=== PATIENT | female | born 1985 | race Hispanic/Latino ===

== ENCOUNTER 2017-10-24 14:44 | Emergency (ER) | payer MEDICAID, OTHER ==
[2017-10-24] MEDS ORDERED: cefTRIAXone (Rocephin) 250 mg Inj IM ONE (15:39)
--- NOTE | 2017-10-24 15:42 | ED PDOC ---
HPI: Abdomen Time Seen by Provider: 10/24/17 15:20 Chief Complaint (Nursing): Abdominal Pain Chief Complaint (Provider): "i have pressure" History Per: Patient History/Exam Limitations: no limitations Onset/Duration Of Symptoms: Days Outside of [place] travel?: No Current Symptoms Are (Timing): Still Present Severity: Mild Pain Scale Rating Of: 2 Location Of Pain/Discomfort: Other (para-vaginally ) Quality Of Discomfort: Dull, Pressure Exacerbating Factors: None Alleviating Factors: None Last Bowel Movement: Today Additional Complaint(s): 32 y/o female, hx of anxiety/depression presents complaining of vaginal pressure and discomfort. Pt reports she was having her usual menstrual period this week and thought she may have forgotten to remove a tampon prior to putting another one in. She has para-vaginal pressure like pain, 2/10, nonradiating, that has been fairly constant since the day before. She is only sexually active with her boyfriend. No other active complaints. Denies fever/ chills, headaches, changes in vision, CP/SOB/palpitations, N/V/D/C, urinary symptoms. Past Medical History Reviewed: Vital Signs Vital Signs: Last Vital Signs Temp 98.1 F 10/24/17 16:02 Pulse 86 10/24/17 16:02 Resp 18 10/24/17 16:02 BP 141/79 10/24/17 16:02 Pulse Ox 100 10/24/17 16:02 - Medical History PMH: Anxiety, Depression - Surgical History Surgical History: No Surg Hx - Family History Family History: States: No Known Family Hx - Allergies Allergies/Adverse Reactions: Allergies Allergy/AdvReac Type Severity Reaction Status Date / Time No Known Allergies Allergy Verified 10/24/17 14:52 Review of Systems ROS Statement: Except As Marked, All Systems Reviewed And Found Negative Physical Exam - Reviewed Nursing Documentation Reviewed: Yes Vital Signs Reviewed: Yes - Physical Exam Appears: Positive for: Non-toxic, No Acute Distress, Uncomfortable Head Exam: Positive for: ATRAUMATIC Skin: Positive for: Normal Color, Warm, Dry Eye Exam: Positive for: EOMI, PERRL. Negative for: Conjunctival injection Neck: Positive for: Normal, Painless ROM, Supple Cardiovascular/Chest: Positive for: Regular Rate, Rhythm Respiratory: Positive for: Normal Breath Sounds Pulses-Radial (L): 2+ Pulses-Radial (R): 2+ Gastrointestinal/Abdominal: Positive for: Normal Exam, Soft. Negative for: Tenderness, Organomegaly, Distended, Guarding, Rebound Pelvic Exam: Positive for: External Exam Normal, Speculum Exam Normal (no sign of foreign body, discharge appreciated ), Bimanual Exam Normal, No Cerv. Motion Tender, No Masses, Discharge (copious greenish/yellow discharge ). Negative for : Active Bleeding, Blood, Cervicitis, Lesions, Tender W/Cervical Motion, Tender Adnexa, Tender Uterus, Ulcers Back: Negative for: L CVA Tenderness, R CVA Tenderness Extremity: Positive for: Normal ROM Lymphatic: Negative for: Adenopathy Neurologic/Psych: Positive for: Alert, director of exhibit development II-XII, Oriented. Negative for: Motor/Sensory Deficits - ECG O2 Sat by Pulse Oximetry: 99 - Progress ED Course And Treament: suspected foreign body/infection pelvic exam performed with Dr. Marquez present, no foreign body seen only greenish/yellow discharge GC/CHL cultures s/p Azithromycin 1g PO Rocephin 250mg IM Disposition - Clinical Impression Clinical Impression: Cervicitis - Patient ED Disposition Is Patient to be Admitted: No - Disposition Referrals: [facility] [Outside] Disposition: Routine/Home Disposition Time: 16:23 Condition: STABLE Instructions: Cervicitis (ED) Forms: [employer] (Hebrew)
[2017-10-24] MEDS ORDERED: cefTRIAXone (Rocephin) 250 mg Inj ONE (15:52)
[2017-10-24 16:02] VITALS: BP 141/79; PULSE 86; RESP 18; TEMP 98.1
[2017-10-24 16:23] VITALS: O2SAT 99
== END 2017-10-24 16:35 | disposition home or self-care (01) ==
LOC: MERGE 14:44 → H.ER 14:44
DX: N72 Inflammatory disease of cervix uteri (principal); F32.9 Major depressive disorder, single episode, unspecified; F41.9 Anxiety disorder, unspecified
CPT/HCPCS: 87070; 87181; 87491; 87591; 96372; 99282; J0696

== ENCOUNTER 2018-12-18 21:23 | Emergency (ER) | payer SELFPAY ==
[2018-12-18 21:23] VITALS: BMI 20.9
[2018-12-18 22:46] LABS: SQUAMOUS EPITHIAL < 1 /hpf (0-5); URINE BILIRUBIN NEGATIVE (NEGATIVE); URINE BLOOD NEGATIVE (NEGATIVE); URINE CLARITY CLEAR (Clear); URINE COLOR STRAW (YELLOW); URINE GLUCOSE (UA) NEG (NEGATIVE); URINE LEUKOCYTE ESTERASE NEG Leu/uL (Negative); URINE PROTEIN NEGATIVE (NEGATIVE); URINE UROBILINOGEN 0.2-1.0 mg/dL (0.2-1.0)
[2018-12-18 23:06] LABS: BARBITURATES, UR NEGATIVE (NEGATIVE); BENZODIAZEPINES, UR NEGATIVE (NEGATIVE); OPIATES, UR NEGATIVE (NEGATIVE); PHENCYCLIDINE, UR NEGATIVE (NEGATIVE)
[2018-12-18 23:10] LABS: ALB/GLOB RATIO 1.4 (1.0-2.1); ALBUMIN 4.5 g/dL (3.5-5.0); ALT/SGPT 42 U/L (9-52); AST/SGOT 44 U/L (14-36); BLOOD UREA NITROGEN 10 mg/dl (7-17); CALCIUM 9.2 mg/dL (8.4-10.2); GFR NON-AFRICAN AMERICAN > 60
[2018-12-18 23:13] LABS: BASO # 0.1 K/uL (0.0-0.2); BASO % 1.9 % (0.0-2.0); EOS # 0.1 K/uL (0.0-0.7); EOS % 2.5 % (0.0-4.0); HEMOGLOBIN 14.2 g/dL (12.0-16.0); LYMPH # 1.7 K/uL (1.0-4.3); LYMPH % 43.4 % (20.0-40.0); MEAN CELL VOLUME 94.9 fl (81.0-99.0); MEAN CORPUSCULAR HEMOGLOBIN 32.2 pg (27.0-31.0); MEAN CORPUSCULAR HGB CONC 33.9 g/dL (33.0-37.0); MONO # 0.5 K/uL (0.0-0.8); MONO % 12.7 % (0.0-10.0); NEUT # 1.6 K/uL (1.8-7.0); NEUT % 39.5 % (50.0-75.0); NRBC % 0.2 % (0.0-0.0); RBC 4.42 Mil/uL (3.80-5.20); RED CELL DISTRIBUTION WIDTH 12.9 % (11.5-14.5)
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
--- NOTE | 2018-12-18 23:56 | ED PDOC ---
- Laboratory Results Result Diagrams: 12/18/18 22:45 12/18/18 22:45 Lab Results: Total Bilirubin 0.2 mg/dl (0.2-1.3) 12/18/18 22:45 AST 44 U/L (14-36) H 12/18/18 22:45 ALT 42 U/L (9-52) 12/18/18 22:45 Alkaline Phosphatase 66 U/L (38-126) 12/18/18 22:45 Total Protein 7.7 G/DL (6.3-8.2) 12/18/18 22:45 Albumin 4.5 g/dL (3.5-5.0) 12/18/18 22:45 Globulin 3.2 gm/dL (2.2-3.9) 12/18/18:45 Albumin/Globulin Ratio 1.4 (1.0-2.1) 12/18/18 22:45 Urine Color Straw (YELLOW) 12/18/18 22:35 Urine Clarity Clear (Clear) 12/18/18 22:35 Urine pH 6.0 (5.0-8.0) 12/18/18 22:35 Ur Specific [place] 1.005 (1.003-1.030) 12/18/18 22:35 Urine Protein Negative mg/dL (NEGATIVE) 12/18/18 22:35 Urine Glucose (UA) Neg mg/dL (NEGATIVE) 12/18/18 22:35 Urine Ketones Negative mg/dL (NEGATIVE) 12/18/18 22:35 Urine Blood Negative (NEGATIVE) 12/18/18 22:35 Urine Nitrate Negative (NEGATIVE) 12/18/18 22:35 Urine Bilirubin Negative (NEGATIVE) 12/18/18 22:35 Urine Urobilinogen 0.2-1.0 mg/dL (0.2-1.0) 12/18/18 22:35 Ur Leukocyte Esterase Neg Maura/uL (Negative) 12/18/18 22:35 Urine RBC (Auto) 1 /hpf (0-3) 12/18/18 22:35 Urine Microscopic WBC < 1 /hpf (0-5) 12/18/18 22:35 Ur Squamous Epith Cells < 1 /hpf (0-5) 12/18/18 22:35 - ECG O2 Sat by Pulse Oximetry: 97 <Bhavna Draper - Last Filed: 12/19/18 06:14> - Laboratory Results Result Diagrams: 12/18/18 22:45 12/18/18 22:45 Lab Results: Total Bilirubin 0.2 mg/dl (0.2-1.3) 12/18/18 22:45 AST 44 U/L (14-36) H 12/18/18 22:45 ALT 42 U/L (9-52) 12/18/18 22:45 Alkaline Phosphatase 66 U/L (38-126) 12/18/18 22:45 Total Protein 7.7 G/DL (6.3-8.2) 12/18/18 22:45 Albumin 4.5 g/dL (3.5-5.0) 12/18/18 22:45 Globulin 3.2 gm/dL (2.2-3.9) 12/18/18 22:45 Albumin/Globulin Ratio 1.4 (1.0-2.1) 12/18/18 22:45 Urine Color Straw (YELLOW) 12/18/18 22:35 Urine Clarity Clear (Clear) 12/18/18 22:35 Urine pH 6.0 (5.0-8.0) 12/18/18 22:35 Ur Specific [place] 1.005 (1.003-1.030) 12/18/18 22:35 Urine Protein Negative mg/dL (NEGATIVE) 12/18/18 22:35 Urine Glucose (UA) Neg mg/dL (NEGATIVE) 12/18/18 22:35 Urine Ketones Negative mg/dL (NEGATIVE) 12/18/18 22:35 Urine Blood Negative (NEGATIVE) 12/18/18 22:35 Urine Nitrate Negative (NEGATIVE) 12/18/18 22:35 Urine Bilirubin Negative (NEGATIVE) 12/18/18 22:35 Urine Urobilinogen 0.2-1.0 mg/dL (0.2-1.0) 12/18/18 22:35 Ur Leukocyte Esterase Neg Maura/uL (Negative) 12/18/18 22:35 Urine RBC (Auto) 1 /hpf (0-3) 12/18/18 22:35 Urine Microscopic WBC < 1 /hpf (0-5) 12/18/18 22:35 Ur Squamous Epith Cells < 1 /hpf (0-5) 12/18/18 22:35 <Josue Stallings - Last Filed: 12/19/18 06:45> Medical Decision Making Medical Decision Making: Patient endorsed to me by RACH Leung pending sobriety and crisis evaluation. 01:00am: patient seen, speaking coherently, A&Ox3, walking with steady gait. Crisis evaluation ordered. 06:00am: seen by crisis intervention specialist but will not be able to clear for discharge until at least 7am <Bhavna Draper - Last Filed: 12/19/18 06:14> Medical Decision Makin:00 Patient care endorsed to Dr. Marquez pending clinical sobriety and reevaluation. <Josue Stallings - Last Filed: 12/19/18 06:45> Disposition - POA Present On Arrival: None - Disposition Disposition: Transfer of Care (Dr. Stallings) Disposition Time: 06:15 <Bhavna Draper - Last Filed: 12/19/18 06:14> <Josue Stallings - Last Filed: 12/19/18 06:45> - Clinical Impression Clinical Impression: Depression, Alcohol abuse - Disposition Condition: STABLE Forms: [facility] (Comoran)
[2018-12-19 03:28] VITALS: RESP 18
[2018-12-19 07:00] VITALS: BP 128/82; PULSE 74; TEMP 98.2; O2SAT 98
--- NOTE | 2018-12-19 10:02 | RAD ---
Date of service: 12/19/2018 HISTORY: medical clearance COMPARISON: No prior. TECHNIQUE: Chest PA and lateral views FINDINGS: LUNGS: No active pulmonary disease. Incidental note made of an azygos fissure PLEURA: No significant pleural effusion identified. No pneumothorax apparent. CARDIOVASCULAR: No aortic atherosclerotic calcification present. Normal cardiac size. No pulmonary vascular congestion. OSSEOUS STRUCTURES: No significant abnormalities. VISUALIZED UPPER ABDOMEN: Normal. OTHER FINDINGS: None. IMPRESSION: No active disease.
--- NOTE | 2018-12-19 14:45 | CARD ---
APPROVED REPORT Date of service: 12/18/2018 EKG Measurement Heart [id number] <Conclusion> Normal sinus rhythm Normal ECG
== END 2018-12-19 07:14 | disposition home or self-care (01) ==
LOC: H.ER 21:23
DX: F10.10 Alcohol abuse, uncomplicated (principal); F32.9 Major depressive disorder, single episode, unspecified; F41.9 Anxiety disorder, unspecified
CPT/HCPCS: 71046; 80053; 81003; 81025; 85025; 93005; 99285; G0480

== ENCOUNTER 2019-01-29 18:54 | Emergency (ER) | payer SELFPAY ==
[2019-01-29 19:04] VITALS: BMI 20.1
--- NOTE | 2019-01-29 20:23 | ED PDOC ---
HPI: Psych/Substance Abuse Time Seen by Provider: 01/29/19 19:17 Chief Complaint (Nursing): Psychiatric Evaluation Chief Complaint (Provider): Crisis Evaluation History Per: Patient History/Exam Limitations: no limitations Onset/Duration Of Symptoms: Hrs Suicide/Self Injury Attempted (Context): None Additional Complaint(s): 34 year old female presents to ED for crisis evaluation. Patient reports noncompliance with psychiatric medicine and cites lapsed insurance for not covering medicine. Patient did not request to come to ED; however her boyfriend called because she had suicidal ideation. She does not have any suicidal ideation at this time but in the past she has had ideation. She additionally denies any auditory or visual hallucinations and homicidal ideation. PMD: [facility] Past Medical History Reviewed: Historical Data, Nursing Documentation, Vital Signs Vital Signs: Last Vital Signs Temp 97.8 F 01/29/19 19:00 Pulse 112 H 01/29/19 19:00 Resp 18 01/29/19 19:00 BP 133/91 H 01/29/19 19:00 Pulse Ox 97 01/29/19 19:00 Primary Care Provider: Non [facility] Provider, - Medical History PMH: Anxiety, Depression Denies: Diabetes, Hepatitis, HIV, HTN, Seizures, Sexually Transmitted Disease - Family History Family History: States: Unknown Family Hx - Social History Current smoker - smoking cessation education provided: No Alcohol: Social (occasionally) Drugs: Denies - Immunization History Hx Influenza Vaccination: Yes Hx Pneumococcal Vaccination: No - Allergies Allergies/Adverse Reactions: Allergies Allergy/AdvReac Type Severity Reaction Status Date / Time No Known Allergies Allergy Verified 12/18/18 21:30 Review of Systems ROS Statement: Except As Marked, All Systems Reviewed And Found Negative Psych: Positive for: Suicidal ideation (referred to hospital by her boyfriend) Physical Exam - Reviewed Nursing Documentation Reviewed: Yes Vital Signs Reviewed: Yes - Physical Exam Appears: Positive for: Non-toxic, No Acute Distress Head Exam: Positive for: ATRAUMATIC, NORMOCEPHALIC Skin: Positive for: Normal Color, Warm, Dry Eye Exam: Positive for: EOMI, Normal appearance, PERRL ENT: Positive for: Normal ENT Inspection Neck: Positive for: Normal, Painless ROM, Supple Cardiovascular/Chest: Positive for: Regular Rate, Rhythm. Negative for: Murmur Respiratory: Positive for: Normal Breath Sounds. Negative for: Respiratory Distress Gastrointestinal/Abdominal: Positive for: Normal Exam, Soft. Negative for: Tenderness Back: Positive for: Normal Inspection. Negative for: L CVA Tenderness, R CVA Tenderness, Vertebral Tenderness Extremity: Positive for: Normal ROM (upper and lower). Negative for: Pedal Edema, Deformity Neurological/Psych: Positive for: Alert, Oriented (x3). Negative for: Motor/Sensory Deficits - ECG O2 Sat by Pulse Oximetry: 97 (RA) Pulse Ox Interpretation: Normal Medical Decision Making Medical Decision Making: Time: 1919 Impression: 34 year old female referred for crisis evaluation and non compliance with psychiatric medicine Initial Plan: --Labs (Drug screen, U-preg, U-dip) --Crisis Evaluation consultation 2102 Patient evaluated by crisis and diagnosed with anxiety. She was discharged home in the company of her boyfriend. Scribe Attestation: Documented by Darrel Wallace training under Carmen Dela Cruz, acting as a scribe for Josue Stallings MD. Provider Scribe Attestation: All medical record entries made by the Scribe were at my direction and personally dictated by me. I have reviewed the chart and agree that the record accurately reflects my personal performance of the history, physical exam, medical decision making, and the department course for this patient. I have also personally directed, reviewed, and agree with the discharge instructions and disposition. Disposition - Clinical Impression Clinical Impression: Anxiety - Disposition Referrals: [facility] [Primary Care Provider] - Disposition Time: 21:03 (home) Condition: STABLE Instructions: Anxiety, Adult (DC) Forms: [employer] (Croatian)
[2019-01-29 20:39] LABS: BARBITURATES, UR NEGATIVE (NEGATIVE); BENZODIAZEPINES, UR NEGATIVE (NEGATIVE); OPIATES, UR NEGATIVE (NEGATIVE); PHENCYCLIDINE, UR NEGATIVE (NEGATIVE)
[2019-01-29 21:25] VITALS: BP 134/87; PULSE 97; RESP 15; TEMP 98; O2SAT 99
== END 2019-01-29 21:25 | disposition home or self-care (01) ==
LOC: H.ER 18:54 → SUPCPDRO 18:54 → H.ER 21:25
DX: F41.9 Anxiety disorder, unspecified (principal); Z86.59 Personal history of other mental and behavioral disorders
CPT/HCPCS: 81025; 99283; G0480

== ENCOUNTER 2019-02-18 16:22 | Emergency (ER) | payer MEDICAID ==
[2019-02-18 16:22] VITALS: BMI 20.1
[2019-02-18 17:17] VITALS: RESP 18; TEMP 98.6; O2SAT 100
--- NOTE | 2019-02-18 17:41 | ED PDOC ---
HPI: CCC, URI, Sore Throat Time Seen by Provider: 02/18/19 17:22 Chief Complaint (Nursing): ENT Problem Chief Complaint (Provider): Left Ear Pain History Per: Patient History/Exam Limitations: no limitations Onset/Duration Of Symptoms: Days (x 1 month) Current Symptoms Are (Timing): Still Present Additional Complaint(s): 34 year old female presents to the ED for evaluation of left ear pain beginning one month ago, worsening since onset associated with decreased hearing from the ear and increased pressure, unrelieved with peroxide use. She notes one similar episode when she was 18 y/o but attributes that to a beach vacation in [place]. Currently denies recent swimming, URI symptoms, and fever. Of note, patient says she has no PMD at the moment secondary to an insurance issue, and when she found out it was not being reinstated, she came in today for evaluation, additionally reporting she has been unable to take her psych meds since November due to this issue. Denies suicidal and homicidal ideation. Past Medical History Reviewed: Historical Data, Nursing Documentation, Vital Signs Vital Signs: Last Vital Signs Temp 98.6 F 02/18/19 17:14 Pulse 70 02/18/19 17:14 Resp 18 02/18/19 17:14 BP 172/118 H 02/18/19 17:14 Pulse Ox 100 02/18/19 17:14 Primary Care Provider: JACQUELINE LENZ (pt no longer has PMD secondary to insurance issues) - Medical History PMH: Anxiety, Depression Denies: Diabetes, Hepatitis, HIV, HTN, Seizures, Sexually Transmitted Disease - Surgical History Surgical History: No Surg Hx - Family History Family History: States: Hypertension - Social History Current smoker - smoking cessation education provided: Yes - Immunization History Hx Influenza Vaccination: Yes Hx Pneumococcal Vaccination: No - Home Medications Home Medications: Ambulatory Orders Medication Instructions Recorded Carbamide Peroxide [Debrox Ear 4 drop BID #1 bottle 02/18/19 Drops] - Allergies Allergies/Adverse Reactions: Allergies Allergy/AdvReac Type Severity Reaction Status Date / Time No Known Allergies Allergy Verified 12/18/18 21:30 Review of Systems ROS Statement: Except As Marked, All Systems Reviewed And Found Negative Constitutional: Negative for: Fever ENT: Positive for: Ear Pain (left associated with decreased hearing and increased pressure) Respiratory: Negative for: Other (URI symptoms) Psych: Negative for: Suicidal ideation (or homicidal ideation) Physical Exam - Reviewed Nursing Documentation Reviewed: Yes Vital Signs Reviewed: Yes - Physical Exam Appears: Positive for: Well, No Acute Distress Head Exam: Positive for: ATRAUMATIC, NORMOCEPHALIC Skin: Positive for: Warm, Dry Eye Exam: Positive for: EOMI, PERRL ENT: Positive for: TM Is/Are (Left: brown, hard cerumen impaction noted; right TM normal) Neck: Positive for: Painless ROM, Supple Cardiovascular/Chest: Positive for: Regular Rate, Rhythm. Negative for: JVD, Murmur Respiratory: Positive for: Normal Breath Sounds. Negative for: Respiratory Distress Back: Positive for: Normal Inspection. Negative for: Decreased ROM Extremity: Positive for: Normal ROM. Negative for: Pedal Edema Neurological/Psych: Positive for: Awake, Alert. Negative for: Motor/Sensory Deficits - ECG O2 Sat by Pulse Oximetry: 100 (RA) Pulse Ox Interpretation: Normal Medical Decision Making Medical Decision Making: Time: 1734 Initial Impression: cerumen impaction of left ear, hypertension MDM Patient reports that she has high blood pressure at times that often resolves spontaneously attributed to her anxiety. Denies chest pain, shortness of breath, leg swelling, headache, and blurry vision. In ED, BP slightly improved without intervention. At this time, patient advised to proceed with lifestyle changes to decrease BP and follow up with clinic next week. Scribe Attestation: Documented by Svetlana Tracey, acting as a scribe for Yusra Doherty MD. Provider Scribe Attestation: All medical record entries made by the Scribe were at my direction and personally dictated by me. I have reviewed the chart and agree that the record accurately reflects my personal performance of the history, physical exam, medical decision making, and the department course for this patient. I have also personally directed, reviewed, and agree with the discharge instructions and disposition. Disposition - Clinical Impression Clinical Impression: Impacted cerumen of left ear, High blood pressure Counseled Patient/Family Regarding: Diagnosis, Need For Followup, Rx Given - Disposition Referrals: [facility] [Outside] [facility] [Outside] Disposition: Routine/Home Disposition Time: 17:39 Condition: STABLE Additional Instructions: PLEASE FOLLOWUP AT CLINIC NEXT WEEK FOR REEVALUATION FOR NOW PLEASE MAKE SOME LIFESTYLE CHANGES TO DECREASE YOUR BLOOD PRESSURE: DECREASE SALT INTAKE, STOP SMOKING IF YOU SMOKE, AVOID ANY DRUG USE. Prescriptions: Carbamide Peroxide [Debrox Ear Drops] 4 drop BID #1 bottle Instructions: High Blood Pressure (DC), Ear Wax Impaction (DC)
[2019-02-18 18:11] VITALS: BP 155/100; PULSE 72
== END 2019-02-18 17:42 | disposition home or self-care (01) ==
LOC: H.ER 16:22
DX: H61.22 Impacted cerumen, left ear (principal); I10 Essential (primary) hypertension; F17.200 Nicotine dependence, unspecified, uncomplicated; Z86.59 Personal history of other mental and behavioral disorders